=== PATIENT | male | born 1970 | race American Indian/Alaskan Native ===

== ENCOUNTER 2019-07-17 18:27 | Emergency (ER) | payer SELFPAY ==
[2019-07-17] MEDS ORDERED: LORazepam 2 MG/ML VIAL IM PRN (18:38)
[2019-07-17] MEDS ORDERED: HALOPERIDOL LACTATE 5 MG/1 ML INJ IM PRN (18:38)
--- NOTE | 2019-07-17 18:39 | Emergency Department Report ---
ED General Adult HPI - General Chief complaint: Psych Stated complaint: MH Time Seen by Provider: 07/17/19 18:31 Source: family, RN notes reviewed, old records reviewed Mode of arrival: Stretcher Limitations: Other (Disorganized behavior, psychosis) - History of Present Illness Initial comments: The patient is a 48-year-old gentleman. He apparently has a history of psychiatric disease. He presented to this emergency room waiting room, via uncertain means of transportation, and for uncertain reason. The patient would not answer any of my questions. He was talking to his cell phone. He appeared to be responding to internal stimuli. At the moment, he is not accompanied by friends or family. However, nursing team got in touch with the patient's . Nursing team documents the following: pt presents from without triage or being registered due to patient's refusal to answer any questions. It is reported that patient was pacing back and forth in [place] with paranoid behavior. Finally was able to obtain patient's name and a phone number to verify information. Spoke with patient's at [phone] that reports patient is "crazy" and has possible bipolar and possibly schizophrenia. Pt's also reports pt was h/o cocaine and marijuana abuse. Unable to obtain home medications but does report trazadone and seroquel but wasn't sure the dose or the remainder medications or any other medical problems. Pt's mother Laila Rodriguez [phone] wasn't able to provide any add'l information. -: unknown Quality: other Consistency: other Improves with: other Worsens with: other Associated Symptoms: other - Related Data Allergies Allergy/AdvReac Type Severity Reaction Status Date / Time No Known Allergies Allergy Verified 07/19/19 12:13 ED Review of Systems ROS: Stated complaint: MH Other details as noted in HPI Comment: Unobtainable due to pts medical conditions ED Physical Exam - General Limitations: Other (Patient is psychotic and disorganized) General appearance: anxious, in distress - Head Head exam: Present: atraumatic, normocephalic - Eye Eye exam: Present: normal appearance, PERRL, EOMI - ENT ENT exam: Present: normal exam, normal orophraynx, mucous membranes moist, normal external ear exam - Neck Neck exam: Present: normal inspection, full ROM. Absent: tenderness, meningismus - Respiratory Respiratory exam: Present: normal lung sounds bilaterally. Absent: respiratory distress - Cardiovascular Cardiovascular Exam: Present: normal rhythm, tachycardia, normal heart sounds. Absent: systolic murmur, diastolic murmur, rubs, gallop - GI/Abdominal GI/Abdominal exam: Present: soft. Absent: distended, tenderness, guarding, rebound, rigid, pulsatile mass - Rectal Rectal exam: Present: deferred - Extremities Exam Extremities exam: Present: normal inspection, full ROM, other (2+ pulses noted in the bilateral upper and lower extremities. There is no palpable cord. negative Homans sign. Muscular compartments are soft. The pelvis is stable.). Absent: pedal edema, calf tenderness - Back Exam Back exam: Present: normal inspection. Absent: tenderness, CVA tenderness (R), CVA tenderness (L), paraspinal tenderness, vertebral tenderness - Neurological Exam Neurological exam: Present: other (The patient is awake, moving 4 extremities. There is no facial droop. He speaks in complete sentences. His thought s tructure is not lucid. He appears to be responding to internal stimuli. Detailed neurologic examination is not completed secondary to acute psychosis) - Psychiatric Psychiatric exam: Present: agitated, anxious - Skin Skin exam: Present: warm, dry, intact, normal color. Absent: rash ED Course Vital Signs 07/17/19 07/17/19 07/17/19 18:27 20:00 20:24 Temperature 98.4 F 97.7 F Pulse Rate 114 H 69 Respiratory 24 18 16 Rate Blood Pressure 146/104 115/78 [Right] O2 Sat by Pulse 99 98 98 Oximetry 07/18/19 07/18/19 07/18/19 02:04 09:43 20:00 Temperature 98.5 F 98.7 F Pulse Rate 75 83 Respiratory 16 18 18 Rate Blood Pressure 124/76 123/84 [Right] O2 Sat by Pulse 98 98 Oximetry 07/18/19 07/19/19 07/19/19 20:42 02:25 08:58 Temperature 99.1 F 98.5 F 98.5 F Pulse Rate 86 85 80 Respiratory 18 16 18 Rate Blood Pressure 128/86 114/77 116/84 [Right] O2 Sat by Pulse 98 98 97 Oximetry - Reevaluation(s) Reevaluation #1: 07/17/19 19:31 Differential diagnosis, including but not limited to: Psychosis, nelly, paranoia, medical clearance for psychiatric placement Assessment and plan: 48-year-old gentleman with reported history of psychiatric disease, who is clinically presenting with breakthrough psychosis. He is afebrile with reassuring vital signs. His physical examination is unremarkable. There is no indication of blunt head trauma based off of his physical examination. A 1013 is ordered for obvious psychosis, inability to care for self. Screening laboratory studies are ordered. Psychiatric consultation is ordered. Reevaluation #2: 07/17/19 20:23 Laboratory studies unremarkable. Patient's agitation improved after medication. Vital signs unremarkable at this time. At the moment, the patient does not appear to have an immediate medical contraindication to psychiatric admission, evaluation, consultation and placement ED Medical Decision Making - Lab Data Result diagrams: 07/17/19 19:30 07/17/19 19:30 Vital Signs 07/17/19 18:27 Temperature 98.4 F Pulse Rate 114 H Respiratory 24 Rate Blood Pressure 146/104 [Right] O2 Sat by Pulse 99 Oximetry Lab Results 07/17/19 07/17/19 07/17/19 Range/Units 19:30 19:30 19:30 WBC 11.0 (4.5-11.0) K/mm3 RBC 5.37 H (3.65-5.03) M/mm3 Hgb 15.5 H (11.8-15.2) gm/dl Hct 46.4 H (35.5-45.6) % MCV 87 (84-94) fl MCH 29 (28-32) pg MCHC 33 (32-34) % RDW 13.7 (13.2-15.2) % PT 14.6 (12.2-14.9) Sec. INR 1.12 (0.87-1.13) Sodium 137 (137-145) mmol/L Potassium 3.9 (3.6-5.0) mmol/L Chloride 100.2 (98-107) mmol/L Carbon Dioxide 20 L (22-30) mmol/L Anion Gap 21 mmol/L BUN 8 L (9-20) mg/dL Creatinine 1.1 (0.8-1.5) mg/dL Estimated GFR > 60 ml/min BUN/Creatinine Ratio 7 % Glucose 99 (75-100) mg/dL Calcium 9.8 (8.4-10.2) mg/dL Magnesium 2.00 (1.7-2.3) mg/dL Total Bilirubin 0.70 (0.1-1.2) mg/dL AST 20 (5-40) units/L ALT 14 (7-56) units/L Alkaline Phosphatase 67 (35-129) units/L Total Creatine Kinase 426 H (55-170) units/L Total Protein 8.1 (6.3-8.2) g/dL Albumin 4.6 (3.9-5) g/dL Albumin/Globulin Ratio 1.3 % TSH (0.270-4.200) mlU/mL Salicylates (2.8-20.0) mg/dL Acetaminophen (10.0-30.0) ug/mL Plasma/Serum Alcohol (0-0.07) % 07/17/19 07/17/19 07/17/19 Range/Units 19:30 19:30 19:30 WBC (4.5-11.0) K/mm3 RBC (3.65-5.03) M/mm3 Hgb (11.8-15.2) gm/dl Hct (35.5-45.6) % MCV (84-94) fl MCH (28-32) pg MCHC (32-34) % RDW (13.2-15.2) % PT (12.2-14.9) Sec. INR (0.87-1.13) Sodium (137-145) mmol/L Potassium (3.6-5.0) mmol/L Chloride (98-107) mmol/L Carbon Dioxide (22-30) mmol/L Anion Gap mmol/L BUN (9-20) mg/dL Creatinine (0.8-1.5) mg/dL Estimated GFR ml/min BUN/Creatinine Ratio % Glucose (75-100) mg/dL Calcium (8.4-10.2) mg/dL Magnesium (1.7-2.3) mg/dL Total Bilirubin (0.1-1.2) mg/dL AST (5-40) units/L ALT (7-56) units/L Alkaline Phosphatase (35-129) units/L Total Creatine Kinase (55-170) units/L Total Protein (6.3-8.2) g/dL Albumin (3.9-5) g/dL Albumin/Globulin Ratio % TSH 1.530 (0.270-4.200) mlU/mL Salicylates < 0.3 L (2.8-20.0) mg/dL Acetaminophen < 5.0 L (10.0-30.0) ug/mL Plasma/Serum Alcohol (0-0.07) % 07/17/19 Range/Units 19:30 WBC (4.5-11.0) K/mm3 RBC (3.65-5.03) M/mm3 Hgb (11.8-15.2) gm/dl Hct (35.5-45.6) % MCV (84-94) fl MCH (28-32) pg MCHC (32-34) % RDW (13.2-15.2) % PT (12.2-14.9) Sec. INR (0.87-1.13) Sodium (137-145) mmol/L Potassium (3.6-5.0) mmol/L Chloride (98-107) mmol/L Carbon Dioxide (22-30) mmol/L Anion Gap mmol/L BUN (9-20) mg/dL Creatinine (0.8-1.5) mg/dL Estimated GFR ml/min BUN/Creatinine Ratio % Glucose (75-100) mg/dL Calcium (8.4-10.2) mg/dL Magnesium (1.7-2.3) mg/dL Total Bilirubin (0.1-1.2) mg/dL AST (5-40) units/L ALT (7-56) units/L Alkaline Phosphatase (35-129) units/L Total Creatine Kinase (55-170) units/L Total Protein (6.3-8.2) g/dL Albumin (3.9-5) g/dL Albumin/Globulin Ratio % TSH (0.270-4.200) mlU/mL Salicylates (2.8-20.0) mg/dL Acetaminophen (10.0-30.0) ug/mL Plasma/Serum Alcohol < 0.01 (0-0.07) % Critical care attestation.: If time is entered above; I have spent that time in minutes in the direct care of this critically ill patient, excluding procedure time. ED Disposition Clinical Impression: Medical clearance for psychiatric admission Disposition: [id number]/TX-[id number] PSY HOSP/PSY UNIT Is pt being admited?: No Does the pt Need Aspirin: No Condition: Stable Referrals: PRIMARY CARE, [Primary Care Provider] - 3-5 Days
[2019-07-17 19:47] LABS: Hematocrit 46.4 % (35.5-45.6); Hemoglobin 15.5 gm/dl (11.8-15.2); Mean Corpuscular HGB Conc 33 % (32-34); Mean Corpuscular Volume 87 fl (84-94); Red Blood Count 5.37 M/mm3 (3.65-5.03); Red Cell Distribution Width 13.7 % (13.2-15.2)
[2019-07-17 19:59] LABS: INR 1.12 (0.87-1.13)
[2019-07-17 20:04] LABS: Alanine Aminotransferase 14 units/L (7-56); Albumin 4.6 g/dL (3.9-5); BUN/Creatinine Ratio 7; Blood Urea Nitrogen 8 mg/dL (9-20); Calcium 9.8 mg/dL (8.4-10.2); Hemolysis Index 17
[2019-07-17 20:46] LABS: Platelet Count 296 K/mm3 (140-440)
[2019-07-18 07:09] LABS: Bacteria,Urine 1+ /HPF (Negative); Bilirubin,Urine NEG (Negative); Blood,Urine NEG (Negative); Color,Urine Yellow (Yellow); Mucus,Urine 3+ /HPF; Protein,Urine <15 mg/dL mg/dL (Negative)
[2019-07-18 07:39] LABS: Amphetamine Screen,Urine PRESUMPTIVE NEGATIVE; Benzodiazepines Screen,Urine PRESUMPTIVE NEGATIVE; Methadone Screen,Urine PRESUMPTIVE NEGATIVE; Opiate Screen,Urine PRESUMPTIVE NEGATIVE
[2019-07-18 08:28] LABS: Cannabinoid Screen,Urine PRESUMPTIVE POSITIVE; Cocaine Screen,Urine PRESUMPTIVE POSITIVE
[2019-07-19 09:01] VITALS: BP 116/84
--- NOTE | 2019-07-19 12:08 | Consultation ---
History of Present Illness - Reason for Consult Consult date: 07/19/19 Reason for consult: Psych eval Requesting physician: AROLDO DAVIDSON - Chief Complaint Chief complaint: Confused, suicidal - History of Present Psychiatric Illness The patient is a 48yo , employed male with Cocaine use disorder, Bipolar disorder and Schizophrenia. UDS was positive for Cocaine. He presented to the ED disorganized and psychotic. Psychiatry consulted to evaluate patient and recommend disposition. In my interview with the patient, he reports not being able to think clearly, he feels confused and states that he is suicidal. He admits to abusing Cocaine. He endorses AH and paranoia but denies HI. PAST PSYCHIATRIC HISTORY: Diagnoses: Cocaine use disorder, Bipolar disorder and Schizophrenia Suicide attempts or Self-harm behavior: yes Prior psychiatric hospitalizations: Yes Substance Abuse history: Cocaine Outpatient treatment: Yes Family Psychiatric History None reported or documented SOCIAL HISTORY Marital Status: Living Arrangements: with Employment Status: employed Access to guns/weapons: Patient denies Education: High School History of Abuse: Patient denies Legal History: Patient denies ROS: Constitutional: Negative for weight loss ENT: Negative for stridor Respiratory: Negative for cough or hemoptysis All other systems reviewed and are negative MENTAL STATUS General Appearance and Behavior: age appropriate, good eye contact, cooperative with questioning and polite Cooperation: Cooperative Psychomotor Behavior: within normal limits Mood: depressed Affect and affective range: Congruent with stated mood Thought Process: Fluent/Logical and Goal-directed Thought Content: AH, Paranoia Speech: Normal volume and Regular rate and rhythm Intellectual Functioning Average Suicidal Ideation: Yes Homicidal Ideation: Denies HI Impulse Control: intact Insight and Judgment: normal insight and judgment Memory: Normal Attention: Normal Orientation: alert and oriented Diagnoses: Substance induced psychosis Cocaine use disorder History of Bipolar and Schizophrenia RECOMMENDATIONS MEDICATIONS: Olanzapine 5mg bid for psychosis Risks, benefits and alternatives of medications discussed with the patient, questions answered and consent obtained from patient. [employer]: Yes DISPOSITION: Acute inpatient psychiatric hospitalization when medically stable LEGAL STATUS: 1013 FOLLOW-UP: Will follow The patient agreed on the treatment plan, understood the risk, benefit, alternative treatment, potential consequence of no treatment, and gave informed consent. Please contact with any questions and/or concerns. Medications and Allergies Allergies Allergy/AdvReac Type Severity Reaction Status Date / Time No Known Allergies Allergy Verified 07/17/19 18:43 Active Meds: Active Medications Haloperidol Lactate (Haldol) 5 mg IM Q6HR PRN PRN Reason: Agitation Last Admin: 07/17/19 18:58 Dose: 5 mg Documented by: Lorazepam (Ativan) 2 mg IM Q4HR PRN PRN Reason: Agitation Last Admin: 07/17/19 18:55 Dose: 2 mg Documented by: Mental Status Exam - Vital signs Last Vital Signs Temp 98.5 F 07/19/19 08:58 Pulse 80 07/19/19 08:58 Resp 18 07/19/19 08:58 BP 116/84 07/19/19 08:58 Pulse Ox 97 07/19/19 08:58 Results Result Diagrams: 07/17/19 19:30 07/17/19 19:30 All other labs normal.
== END 2019-07-19 18:09 ==
LOC: ED 18:27
DX: Z04.6 Encounter for general psychiatric examination, requested by authority (principal)
CPT/HCPCS: 36415; 80053; 80307; 81001; 82550; 83735; 84443; 85027; 85610; 96372; 99285; J1630; J2060; 80320; G0480